=== PATIENT | male | born 1985 | race Caucasian/White ===

== ENCOUNTER 2020-12-19 12:58 | Outpatient (REF) | payer MEDICAID, SELFPAY ==
[2020-12-19 15:03] LABS: Hemoglobin 15.6 g/dl (14.0-18.0); Mean Corpuscular HGB Conc 33.9 g/dl (31.0-36.0); Mean Corpuscular Hemoglobin 28.1 pg (27.0-33.0); Mean Corpuscular Volume 82.9 fL (80-98); Mean Platelet Volume 10.5 fL (9.4-12.4); Platelet Count 283 X10*3/uL (160-400); Red Blood Count 5.55 X10*6/uL (4.60-5.80); Red Cell Distribution Width 11.9 % (11.0-16.0); White Blood Count 10.2 X10*3/uL (4.8-10.8)
[2020-12-19 15:24] LABS: Alanine Aminotransferase 37 U/L (0-40); Albumin Level 5.2 g/dL (3.5-5.0); Alkaline Phosphatase 76 U/L (39-117); Anion Gap 13 (12-20); Aspartate Amino Transferase 22 U/L (5-37); Bilirubin Total 1.1 mg/dL (0.0-1.0); Blood Urea Nitrogen 12 mg/dL (9-16); Calcium 10.1 mg/dL (8.4-10.2); Carbon Dioxide 27 mmol/L (22-29); Chloride 102 mmol/L (96-108); Estimated Glomerular Filt Rate > 60; Glucose Random 95 mg/dL (60-115); Sodium 138 mmol/L (135-145); Total Protein 8.1 g/dL (6.5-8.0)
[2020-12-20 15:11] LABS: CRP High Sensitivity 0.3 mg/L
[2020-12-22 00:21] LABS: Transglutaminase Ab IgG 1 U/mL; Transglutaminase IgA 1 U/mL
== END 2020-12-19 12:59 | disposition home or self-care (01) ==
LOC: HO.LAB 12:58
PROVIDERS: Visit Provider Nurse Practitioner Family
DX: R19.7 Diarrhea, unspecified (principal); K21.9 Gastro-esophageal reflux disease without esophagitis; R14.0 Abdominal distension (gaseous); R13.10 Dysphagia, unspecified; R10.11 Right upper quadrant pain; R74.8 Abnormal levels of other serum enzymes; Z12.11 Encounter for screening for malignant neoplasm of colon; Z83.79 Family history of other diseases of the digestive system
CPT/HCPCS: 36415; 80053; 83516; 85027; 86141

== ENCOUNTER 2020-12-20 17:30 | Outpatient (REF) | payer OTHER, SELFPAY ==
[2020-12-21 16:23] LABS: Leukocytes Stool Qualitative NEGATIVE (NEGATIVE)
== END 2020-12-20 17:31 | disposition home or self-care (01) ==
LOC: HO.LNP 17:30
PROVIDERS: Visit Provider Nurse Practitioner Family
DX: K21.9 Gastro-esophageal reflux disease without esophagitis (principal); R19.7 Diarrhea, unspecified
CPT/HCPCS: 87338; 89055

== ENCOUNTER 2020-12-21 15:34 | Outpatient (REF) | payer OTHER, SELFPAY | END 2020-12-21 15:35 | disposition home or self-care (01) | LOC: HO.LNP 15:34 | PROVIDERS: Visit Provider Nurse Practitioner Family | DX: K21.9 Gastro-esophageal reflux disease without esophagitis (principal); R19.7 Diarrhea, unspecified | CPT/HCPCS: 87045; 87046; 87177; 87209 ==

== ENCOUNTER 2021-01-02 08:01 | Outpatient (REF) | payer OTHER, SELFPAY ==
--- NOTE | ~2021-01-02 | US_ITS ---
EXAMINATION: US ABDOMEN COMPLETE CLINICAL INFORMATION: BANKS COMPARISON: None TECHNIQUE: Real-time imaging of the abdominal viscera. FINDINGS: PANCREAS: Visualized portions of pancreas are normal in appearance. ABDOMINAL AORTA: The proximal, mid, and distal segments are normal in caliber. INFERIOR VENA CAVA: Visualized portions are normal. LIVER: The liver is normal in size. The liver contour is normal. The liver echogenicity is diffusely increased. No focal hepatic lesion. There is no intrahepatic biliary duct dilatation seen. GALLBLADDER: The gallbladder is physiologically distended. Echogenic bile is appreciated. No definitive gallstones are present. There is no gallbladder wall thickening or pericholecystic fluid appreciated. Negative sonographic Loomis's sign. COMMON BILE DUCT: Normal in caliber measuring 0.3 cm in diameter. RIGHT KIDNEY: Normal. No hydronephrosis. No renal calculi or focal parenchymal lesions. The kidney measures 9 cm in maximum dimension. LEFT KIDNEY: Normal. No hydronephrosis. No renal calculi or focal parenchymal lesions. The kidney measures 8.9 cm in maximum dimension. SPLEEN: Normal. The spleen measures 11 cm in maximum dimension. FREE FLUID: None. US/US abdomen complete IMPRESSION: 1. Diffusely increased liver echogenicity. This is a nonspecific finding but often times consistent with hepatic steatosis. Correlation with liver enzymes recommended. 2. Gallbladder sludge demonstrated within an otherwise unremarkable appearing gallbladder.
== END 2021-01-02 08:02 | disposition home or self-care (01) ==
LOC: HO.US 08:01
PROVIDERS: PCP Emergency Medicine; Visit Provider Nurse Practitioner Family
DX: K75.81 Nonalcoholic steatohepatitis (NASH) (principal); R14.0 Abdominal distension (gaseous); R19.7 Diarrhea, unspecified; K21.9 Gastro-esophageal reflux disease without esophagitis; R13.10 Dysphagia, unspecified
CPT/HCPCS: 76700